=== PATIENT | male | born 1960 | race Caucasian/White ===

== ENCOUNTER → 2021-01-17 07:13 | Outpatient (CLI) | payer OTHER, SELFPAY ==
--- NOTE | 2021-01-17 | DI.US.S_ITS ---
PROCEDURE: US RENAL COMPLETE INDICATIONS: CHRONIC KIDNEY DISEASE STAGE II; FAMILY HX KIDNEY CANCER TECHNIQUE: Real-time scanning was performed of the kidneys and bladder, with image documentation. COMPARISON: None. FINDINGS: Kidneys: Kidneys are normal in size. Right kidney measures 10.3 cm long; left kidney measures 11.9 cm long. Right renal cortical thickness is 1.5 cm; left renal cortical thickness is 1.6 cm. Renal cortical echotexture is normal. No hydronephrosis or nephrolithiasis. No suspicious solid mass lesions. Bladder: Pre-void bladder volume is 186 mL. Post-void residual is 0 mL. Pre-void images demonstrate no intraluminal masses or stones. On pre-void images, bilateral ureteral jets are noted with color Doppler interrogation. Miscellaneous: No free pelvic fluid. IMPRESSION: No significant abnormality. Dictated by: Glenroy Whelan M.D. on 01/17/2021 at 9:11 Approved by: Glenroy Whelan M.D. on 01/17/2021 at 9:13
== END ==
PROVIDERS: PCP Internal Medicine; Referring Provider Internal Medicine Nephrology; Visit Provider Internal Medicine Nephrology
DX: N18.2 Chronic kidney disease, stage 2 (mild) (principal); Z80.51 Family history of malignant neoplasm of kidney
CPT/HCPCS: 76770

== ENCOUNTER → 2021-02-01 08:08 | Outpatient (CLI) | payer OTHER, SELFPAY ==
--- NOTE | 2021-02-01 08:10 | DI.US.S_ITS ---
PROCEDURE: US ABDOMEN COMPLETE INDICATIONS: PAIN TECHNIQUE: Real-time scanning was performed of the abdominal and retroperitoneal organs, with image documentation. COMPARISON: [facility], US, US RENAL COMPLETE, 01/17/2021, 7:32. FINDINGS: Liver: Liver is normal in size and homogeneous in echotexture. Gallbladder: No gallstones. No gallbladder wall thickening, pericholecystic fluid or sonographic Otto's sign. Biliary ducts: Intrahepatic bile ducts are non-dilated. Extrahepatic bile duct caliber measures 3.7 mm. Normal is 6-7 mm or less in diameter, or 10 mm or less post-cholecystectomy. Pancreas: Obscured by overlying bowel gas. Spleen: Spleen is normal in size and homogeneous in echotexture. Kidneys: Kidneys are normal in size and echotexture. Right kidney measures 10.2 cm long; left kidney measures 11.2 cm long. No hydronephrosis or nephrolithiasis. No solid masses. Aorta: Visualized aorta is normal in caliber at less than 3 cm. Iliacs: Proximal common iliac arteries are normal in caliber at less than 2.5 cm. IVC: Intrahepatic inferior vena cava is patent. Miscellaneous: No free abdominal fluid. IMPRESSION: 1. Pancreas is obscured by overlying bowel gas. Otherwise normal abdominal ultrasound exam. Dictated by: Jelly Bello M.D. on 02/01/2021 at 9:15 Approved by: Jelly Bello M.D. on 02/01/2021 at 9:16
== END ==
PROVIDERS: PCP Internal Medicine; Referring Provider Internal Medicine Nephrology; Visit Provider Internal Medicine Nephrology
DX: R10.84 Generalized abdominal pain (principal); N18.2 Chronic kidney disease, stage 2 (mild); M54.6 Pain in thoracic spine
CPT/HCPCS: 76700

== ENCOUNTER → 2021-02-01 09:09 | Outpatient (CLI) | payer OTHER, SELFPAY ==
--- NOTE | 2021-02-01 09:12 | DI.RAD.S_ITS ---
PROCEDURE: XR THORACIC SPINE 3V INDICATIONS: SPINE PAIN TECHNIQUE: 3 views of the thoracic spine were acquired. COMPARISON: None. FINDINGS: Bones: No fractures or dislocations. No suspicious bony lesions. 12 pairs of ribs are noted, and appear intact where visualized. Multilevel endplate osteophytes present. Soft tissues: No paravertebral stripe thickening. IMPRESSION: Endplate osteophytes indicating mild early multilevel mid and lower thoracic spine disc degeneration Dictated by: Demetrio Rendon [facility] Interpreted: Glenroy Whelan MD on 02/01/2021 at 9:34 Transcribed by: ANDREZ on 02/01/2021 at 9:35 Approved by: Glenroy Whelan M.D. on 02/01/2021 at 11:06
== END ==
PROVIDERS: PCP Internal Medicine; Referring Provider Internal Medicine; Visit Provider Internal Medicine
DX: M51.34 Other intervertebral disc degeneration, thoracic region (principal); R10.84 Generalized abdominal pain; N18.2 Chronic kidney disease, stage 2 (mild)
CPT/HCPCS: 72072; 76700

== ENCOUNTER → 2021-02-22 12:41 | Outpatient (CLI) | payer OTHER, SELFPAY ==
--- NOTE | 2021-02-22 12:44 | DI.CT.S_ITS ---
PROCEDURE: CT ABDOMEN WO CON INDICATIONS: Epigastric pain TECHNIQUE: After the administration of oral contrast, 5 mm thick sections acquired from the diaphragms to the iliac crests. 5 mm coronal and sagittal reformats were then performed. For radiation dose reduction, the following was used: automated exposure control, adjustment of mA and/or kV according to patient size. COMPARISON: Located [facility], , US ABDOMEN COMPLETE, 02/01/2021, 8:37. FINDINGS: Image quality: Excellent. Lung bases: Lung bases are clear. Heart size is normal. Solid organs: Liver is normal in size. Gallbladder is not distended. Small gallstone at the gallbladder neck, (4/). Pancreas is normal in contours. Fatty atrophy of the pancreas. No peripancreatic fluid collection. Spleen is normal in size. No adrenal nodules. Both kidneys are normal in size, without hydronephrosis. 2 or 3 punctate nonobstructing right kidney stones. Possible 1 punctate nonobstructing left kidney stone. Abnormal lie of the left kidney. Peritoneum and bowel: Bowel loops demonstrate normal wall thickness and caliber. Normal appendix. No free fluid or air. Nodes and vessels: No retroperitoneal or mesenteric adenopathy by size criteria. Aorta and inferior vena cava are normal in size. Bones: No suspicious bony lesions. No vertebral body compression fractures. Miscellaneous: No ventral hernias. IMPRESSION: 1. Small gallstone at the gallbladder neck. Gallbladder is not distended. No pericholecystic fluid seen. 2. Fatty atrophy of the pancreas. No peripancreatic fluid collection. 3. No hydronephrosis. A few punctate kidney stones. 4. Normal appendix. Dictated by: Bradford Kenny M.D. on 02/22/2021 at 14:14 Approved by: Bradford Kenny M.D. on 02/22/2021 at 14:19
== END ==
PROVIDERS: PCP Internal Medicine; Referring Provider Internal Medicine; Visit Provider Internal Medicine
DX: R10.13 Epigastric pain (principal); K80.20 Calculus of gallbladder without cholecystitis without obstruction; N20.0 Calculus of kidney; K86.89 Other specified diseases of pancreas
CPT/HCPCS: 74150

== ENCOUNTER → 2021-03-30 08:12 | Outpatient (CLI) | payer OTHER, SELFPAY ==
--- NOTE | 2021-03-30 08:13 | DI.US.S_ITS ---
PROCEDURE: US THYROID INDICATIONS: RIGHT ANTERIOR NECK PAIN ?MASS TECHNIQUE: Real-time scanning was performed of the thyroid gland, with image documentation. COMPARISON: None. FINDINGS: Right: Thyroid lobe measures 6.1 x 1.7 x 1.2 cm, and is homogeneous in echotexture. Left: Thyroid lobe measures 5.8 x 1.8 x 1.2 cm, and is homogenous in echotexture. Isthmus: 3.4 mm thick. No discrete thyroid nodule is seen. No neck soft tissue lymphadenopathy. IMPRESSION: Unremarkable ultrasound examination of thyroid gland. No neck soft tissue lymphadenopathy. ACR TI-RADS definitions and recommendations: TI-RADS 1 (benign): 0 points. FNA not needed. TI-RADS 2 (not suspicious): 2 points. FNA not needed. TI-RADS 3 (mildly suspicious): 3 points. * FNA if 2.5 cm or larger, follow up if 1.5 cm or larger (at 1, 3, and 5 years). TI-RADS 4 (moderately suspicious): 4-6 points. * FNA if 1.5 cm or larger, follow up if 1 cm or larger (at 1, 2, 3, and 5 years). TI-RADS 5 (highly suspicious): 7 points or more. * FNA if 1 cm or larger, follow up if 0.5 cm or larger (every year for 5 years). Dictated by: Robert Enriquez M.D. on 03/30/2021 at 10:24 Approved by: Robert Enriquez M.D. on 03/30/2021 at 11:01
== END ==
PROVIDERS: PCP Internal Medicine; Referring Provider Internal Medicine; Visit Provider Internal Medicine
DX: M54.2 Cervicalgia (principal); R22.1 Localized swelling, mass and lump, neck
CPT/HCPCS: 76536

== ENCOUNTER → 2022-03-22 12:58 | Outpatient (CLI) | payer OTHER, SELFPAY ==
--- NOTE | 2022-03-22 | DI.RAD.S_ITS ---
PROCEDURE: XR CERVICAL SPINE 2V OR 3V INDICATIONS: Cervicalgia/Pain in thoracic spine TECHNIQUE: 3 view(s) of the cervical spine were acquired. COMPARISON: None. FINDINGS: Normal cervical spine vertebral body height and alignment. No suspicious lytic or blastic osseous lesion. Mild disc height loss from C3-4 through C6-7 with mild degenerative endplate change and uncovertebral hypertrophy. IMPRESSION: Mild degenerative changes. Dictated by: Jaylon Ty M.D. on 03/22/2022 at 15:55 Approved by: Jaylon Ty M.D. on 03/22/2022 at 15:56
--- NOTE | 2022-03-22 | DI.RAD.S_ITS ---
PROCEDURE: XR THORACIC SPINE 2V INDICATIONS: Cervicalgia/Pain in thoracic spine TECHNIQUE: 3 views of the thoracic spine were acquired. COMPARISON: None. FINDINGS: Normal thoracic vertebral body height and alignment. No fracture. No acute finding. No suspicious bone lesion. No significant degenerative change. IMPRESSION: No acute or otherwise significant finding. Dictated by: Jaylon Ty M.D. on 03/22/2022 at 15:47 Approved by: Jaylon Ty M.D. on 03/22/2022 at 15:47
== END ==
PROVIDERS: PCP Internal Medicine; Referring Provider Internal Medicine; Visit Provider Internal Medicine
DX: M47.812 Spondylosis without myelopathy or radiculopathy, cervical region (principal); M54.2 Cervicalgia; M54.6 Pain in thoracic spine
CPT/HCPCS: 72040; 72070

== ENCOUNTER → 2023-10-03 08:30 | Outpatient (CLI) | payer OTHER, SELFPAY ==
[2023-10-03 09:47] LABS: HEMOLYSIS < 15 (0-50)
[2023-10-03 09:55] LABS: Hemoglobin A1C% w Est Avg Glu 5.8 % (4.0-6.0)
[2023-10-03 09:56] LABS: Alanine Aminotransferase 21 IU/L (<50); Albumin 4.3 g/dL (3.5-5.0); Albumin Globulin Ratio 1.7 (1.0-2.8); Alkaline Phosphatase 57 U/L (38-126); Aspartate Aminotransferase 21 IU/L (17-59); BUN Creatinine Ratio 21.3 (6-22); Bilirubin Total 0.9 mg/dL (0.2-1.3); Blood Urea Nitrogen 26 mg/dL (9-20); Calcium 9.2 mg/dL (8.4-10.2); Carbon Dioxide 25 mmol/L (22-32); Chloride 108 mmol/L (98-107); Cholesterol 222 mg/dL (140-199); Estimated Glomerular Filt Rate > 60 mL/min (>60); Globulin 2.5 g/dL (1.7-4.1); Glucose 96 mg/dL (80-110); HDL Cholesterol 50 mg/dL (40-60); LDL Cholesterol Calculated 141 mg/dL (<100); Potassium 4.8 mmol/L (3.4-5.1); Sodium 139 mmol/L (137-145); Total Protein 6.8 g/dL (6.3-8.2); Triglycerides 153 mg/dL (35-150)
[2023-10-03 10:44] LABS: HIV 1 & 2 Ab/Ag 4th Gen Combo NEGATIVE (NEGATIVE); Hep C Virus Ab w/Reflex Quant NEGATIVE s/c (NEGATIVE)
[2023-10-03 11:07] LABS: Prostate Specific Antigen Scrn 2.01 ng/mL (0.1-4.0)
== END ==
LOC: LAB 08:31
PROVIDERS: PCP Family Medicine; Referring Provider Family Medicine; Visit Provider Family Medicine
DX: Z00.00 Encounter for general adult medical examination without abnormal findings (principal); Z12.5 Encounter for screening for malignant neoplasm of prostate; M25.562 Pain in left knee
CPT/HCPCS: 36415; 80053; 80061; 83036; 86803; 87389; G0103

== ENCOUNTER → 2023-11-27 07:18 | Outpatient (CLI) | payer OTHER, SELFPAY ==
--- NOTE | 2023-11-27 07:19 | DI.MRI.S_ITS ---
PROCEDURE: MR KNEE LT WO CON INDICATIONS: Internal derangement of left knee TECHNIQUE: Noncontrast sagittal PD fast spin echo and T2 fast spin echo with fat saturation, sagittal 3-D FLASH with fat saturation; coronal T1 spin echo and PD fast spin echo with fat saturation, and axial PD fast spin echo with fat saturation through the knee. COMPARISON: [facility], CR, XR KNEE 4+ VIEWS LEFT, 10/21/2023, 10:18. FINDINGS: Image quality: Excellent. Menisci: In the medial meniscus, there is a undersurface tear extending from the posterior horn, to the meniscus body. No extrusion of the medial meniscus body. The lateral meniscus is unremarkable. Cruciate ligaments: The anterior and posterior cruciate ligaments appear intact. Medial structures: The medial collateral ligament appears intact. The posterior oblique ligament, semimembranosus tendon insertions, oblique popliteal ligament, and meniscocapsular junction appear intact. Visualized portions of the pes anserinus tendons appear normal. No abnormal bursal fluid. Lateral structures: The lateral collateral ligament, long and short heads of the biceps femoris tendon appear intact. The popliteus tendon appears normal; the popliteofibular ligament appears intact. The posterosuperior and anteroinferior popliteomeniscal fascicles appear intact. The arcuate and fabellofibular ligaments appear intact, on either side of the lateral inferior geniculate artery. Iliotibial band appears normal. Anterior structures: The quadriceps and patellar tendons appear intact. Patellar alignment is normal. No femoral trochlear dysplasia or ventral trochlear prominence. No edema in the infrapatellar fat pad. Marked suprapatellar fat pad edema. Bones and cartilage: The cartilage of the patellofemoral compartment, of the medial and the lateral compartments, are well maintained. No marrow edema. No acute fracture. Joint space: Small knee effusion. Trace popliteal cyst. Popliteal vasculature is unremarkable. Small ganglion cyst posterior to the distal PCL. IMPRESSION: 1. Undersurface tear of the medial meniscus. 2. Marked suprapatellar fat pad edema, raising concern for patellar maltracking. 3. Trace popliteal cyst. Small ganglion cyst posterior to the distal PCL. 4. No significant chondrosis of the left knee. Dictated by: Jennifer Keyes M.D. on 11/27/2023 at 17:57 Approved by: Jennifer Keyes M.D. on 11/27/2023 at 18:05
== END ==
PROVIDERS: PCP Family Medicine; Referring Provider Orthopaedic Surgery Adult Reconstructive Orthopaedic Surgery; Visit Provider Orthopaedic Surgery Adult Reconstructive Orthopaedic Surgery
DX: S83.242A Other tear of medial meniscus, current injury, left knee, initial encounter (principal); M67.462 Ganglion, left knee; M25.462 Effusion, left knee
CPT/HCPCS: 73721

== ENCOUNTER → 2024-10-06 10:46 | Outpatient (CLI) | payer OTHER, SELFPAY ==
--- NOTE | 2024-10-06 10:47 | DI.RAD.S_ITS ---
PROCEDURE: XR KNEE LT 3V INDICATIONS: Lt knee pain, effusion TECHNIQUE: 3 views of the knee were acquired. COMPARISON: None. FINDINGS: Bones: There are no osseous abnormalities. Joints: The tibialfemoral and patellofemoral joints are normal in width and alignment without arthritic change. . Small effusion Soft tissues: Normal IMPRESSION: Small effusion Dictated by: Ghanshyam Omalley M.D. on 10/07/2024 at 10:23 Approved by: Ghanshyam Omalley M.D. on 10/07/2024 at 10:23
== END ==
PROVIDERS: PCP Family Medicine; Referring Provider Family Medicine; Visit Provider Family Medicine
DX: S86.912A Strain of unspecified muscle(s) and tendon(s) at lower leg level, left leg, initial encounter (principal); M25.462 Effusion, left knee; X58.XXXA Exposure to other specified factors, initial encounter
CPT/HCPCS: 73562

== ENCOUNTER → 2024-10-17 09:18 | Outpatient (CLI) | payer OTHER, SELFPAY ==
--- NOTE | 2024-10-17 09:20 | DI.MRI.S_ITS ---
PROCEDURE: MR KNEE LT WO CON INDICATIONS: r/o meniscal injury TECHNIQUE: Noncontrast sagittal PD fast spin echo and T2 fast spin echo with fat saturation, sagittal 3-D FLASH with fat saturation; coronal T1 spin echo and PD fast spin echo with fat saturation, and axial PD fast spin echo with fat saturation through the knee. COMPARISON: [facility], CR, XR KNEE 4+ VIEWS LEFT, 10/21/2023, 10:18. [facility], MR, MR KNEE LT WO CON, 11/27/2023, 7:31. FINDINGS: Image quality: Excellent. Menisci: There is increased prominence of linear high T2 signal intensity traversing the inner, middle, and peripheral thirds of the anterior horn, body, and posterior horn medial meniscus, demonstrating inferior articular surface extension, indicating progressive horizontal tearing. Lateral meniscus is intact. Cruciate ligaments: The anterior and posterior cruciate ligaments appear intact. Medial structures: The medial collateral ligament appears intact, and demonstrates mild surrounding T2 signal elevation. Visualized portions of the pes anserinus tendons appear normal. Partial-thickness tearing of the semimembranosus tendon at the tibial insertion site. No abnormal bursal fluid. Lateral structures: The lateral collateral ligament, long and short heads of the biceps femoris tendon appear intact. The popliteus tendon appears normal. Iliotibial band appears normal. Anterior structures: The quadriceps and patellar tendons appear intact. Patellar alignment is normal. No femoral trochlear dysplasia or ventral trochlear prominence. No edema in the infrapatellar fat pad. Bones and cartilage: No bone marrow contusions or fractures. Mild articular cartilage loss diffusely overlies the weight-bearing aspects of the medial femoral condyle and medial tibial plateau. Articular cartilage fibrillation overlies the patellar apex and lateral patellar facet. Joint space: There is a moderate knee joint effusion and a small Arcos's cyst. Normal appearing synovial plicae are incidentally noted. IMPRESSION: 1. Progressive tearing of medial meniscus. 2. Medial collateral ligament strain. 3. Tricompartmental osteoarthritis with associated articular cartilage loss. 4. Knee joint effusion and Arcos's cyst. 5. Partial-thickness tearing of the semimembranosus tendon. Dictated by: Tisha Hernandez M.D. on 10/18/2024 at 12:02 Approved by: Tisha Hernandez M.D. on 10/18/2024 at 12:06
== END ==
PROVIDERS: PCP Family Medicine; Referring Provider Physician Assistant Surgical; Visit Provider Physician Assistant Surgical
DX: S83.242A Other tear of medial meniscus, current injury, left knee, initial encounter (principal); S83.412A Sprain of medial collateral ligament of left knee, initial encounter; M23.92 Unspecified internal derangement of left knee; M17.12 Unilateral primary osteoarthritis, left knee; M71.22 Synovial cyst of popliteal space [Baker], left knee
CPT/HCPCS: 73721

== ENCOUNTER 2024-10-21 22:47 | Emergency (ER) | payer OTHER, SELFPAY ==
[2024-10-21 22:50] VITALS: BP 159/92; PULSE 87; RESP 16; TEMP 37.4; O2SAT 95; BMI 26.5
--- NOTE | 2024-10-22 01:26 | ED_ITS ---
HPI - Back Pain/Injury General Chief Complaint: Back Pain/Injury Stated Complaint: Back Pain x4days Time Seen by Provider: 10/21/24 22:51 Source: patient History of Present Illness HPI Narrative: 64-year-old gentleman presents with right upper back pain and shoulder pain started 4 days ago but does not recall any inciting event that caused this. However of note he rales recently injured his left knee and did require crutches but he is no longer using them at this time. Denies any nausea vomiting fever chills cough but states he notices the right upper back pain with movement and breathing making it worse. He did take [place] his last norco prior to arrival and he is unsure if it helped made any difference or not. Other than what is stated 14 point review of system is negative. Related Data Previous Rx's ?Medication ?Instructions ?Recorded hydrocodone 5 mg-acetaminophen 325 1 tab PO Q8H PRN pa in #14 tabs 10/06/ mg tablet meloxicam 15 mg tablet 15 mg PO DAILY #30 tabs 09/22 06/15 Allergies Allergy/AdvReac Type Severity Reaction Status Date / Time No Known Drug Allergies Allergy Verified 10/21/24 22:50 Review of Systems Review of Systems ROS Unobtainable: All systems reviewed & are unremarkable except as noted in HPI and below Patient History Medical History (Updated 10/22/24 @ 02:26 by Ghanshyam Hyman, ) GERD (gastroesophageal reflux disease) (~2019) Surgical History (Updated 10/01/23 @ 20:07 by Karlee Camarena) S/P right knee arthroscopy (~1991) Family History (Updated 10/01/23 @ 20:10 by Karlee Camarena) Father Cancer Brother Cancer Brother History of heart disease Grandfather Stroke Grandmother Cancer Grandfather Cancer Grandmother History of heart disease Social History Smoking Status: Never smoker Smoking Status: Never smoker Exam Narrative Exam Narrative: GENERAL: [64] year old patient appears stated age. Well-developed patient, in mild distress. HEAD: Atraumatic. Normocephalic. EYES: Pupils equal round and reactive. Extraocular motions intact. No scleral icterus. No injection or drainage. ENT: Nose without bleeding, purulent drainage. Throat without erythema, tonsillar hypertrophy or exudate. Airway patent. NECK: Trachea midline. Non tender CARDIOVASCULAR: Regular rate and rhythm without murmurs, gallops, or rubs. RESPIRATORY: Clear to auscultation. Breath sounds equal bilaterally. No wheezes, rales, or rhonchi. GASTROINTESTINAL: Abdomen soft, non-tender, nondistended. EXTREMITIES: No edema or joint tenderness. BACK: Nontender without deformity or crepitance. No flank tenderness. NEURO: AOx3. SKIN: No rash or erythema of visible areas Initial Vital Signs Initial Vital Signs: Vital Signs Temperature 99.4 F 10/21/24 22:50 Pulse Rate 87 10/21/24 22:50 Respiratory Rate 16 10/21/24 22:50 Blood Pressure 159/92 H 10/21/24 22:50 Pulse Oximetry 95 10/21/24 22:50 Oxygen Delivery Method Room Air 10/21/24 22:50 Course Vital Signs Vital signs: Vital Signs - 8 hr 10/21/24 22:50 Temperature 99.4 F Pulse Rate 87 Respiratory Rate 16 Blood Pressure 159/92 H Pulse Oximetry 95 Oxygen Delivery Method Room Air MDM - Back Pain/Injury Imaging Data Chest x-ray: Radiologist's Impression: [address] [address] XRay Report Signed Patient: Bjorn Lal MR#: [id number] : 1960 Acct:[id number] Age/Sex: 64 / M Date of Service: 10/22/24 Loc: ED Accession Number: [id number] Procedure: XR chest 2V Ordering Provider: Ghanshyam Hyman D.O. PROCEDURE: XR CHEST 2V INDICATIONS: shoulder pain TECHNIQUE: 2 views of the chest were acquired. COMPARISON: None. FINDINGS: Surgical changes and devices: None. Lungs and pleura: Minimal blunting the right costophrenic. Mediastinum: Mediastinal contours are normal. Heart size is normal. Bones and chest wall: No suspicious bony abnormalities. Soft tissues appear unremarkable. IMPRESSION: Minimal right effusion. Extremity x-ray #1: Radiologist's Impression: [address] [address] XRay Report Signed Patient: Bjorn Lal MR#: [id number] : 1960 Acct:[id number] Age/Sex: 64 / M Date of Service: 10/22/24 Loc: ED Accession Number: [id number] Procedure: XR shoulder RT 2+ views Ordering Provider: Ghanshyam Hyman D.O. PROCEDURE: XR SHOULDER RT MIN 2V INDICATIONS: shoulder pain TECHNIQUE: 3 views of the shoulder were acquired. COMPARISON: None. FINDINGS: Bones: No fractures or dislocations. No suspicious bony lesions. Visualized ribs appear intact. Soft tissues: No suspicious soft tissue calcifications. Minimal right effusion. IMPRESSION: No visualized acute fracture or dislocation. However, if clinical concern and/or pain persist, short interval imaging followup in 7-10 days is recommended, as occult injury cannot be definitively excluded. MDM Narrative Medical decision making narrative: Vital signs, nurse triage note, medication list, previous ER visits, and all imaging studies reviewed. Chest x-ray showed minimal right-sided effusion. Right shoulder x-ray did not reveal any fracture or dislocation. Differential diagnosis includes fracture, dislocation, contusion, arthritis, pneumothorax, pancreatitis, kidney stone, cholecystitis. Patient given hydrocodone and ibuprofen here. DC home to follow up with PCP for continuity of care Discharge Plan Departure Patient Disposition: Home Clinical Impression: Acute upper back pain Acute shoulder pain Qualifiers: Laterality: right Qualified Code(s): M25.511 - Pain in right shoulder Instructions: DI for Thoracic Back Pain Activity Restrictions/Additional Instructions: Return with new or worsening symptoms. Alternate Tylenol 500 mg every 6 hours along with ibuprofen 800 mg every 8 hours as needed for pain control. Keep hydrated. Follow up PCP tomorrow or Friday for continuity of care. Prescriptions: No Action hydrocodone-acetaminophen 5-325 mg tablet 1 tab PO Q8H PRN (Reason: pain) Qty: 14 0RF meloxicam 15 mg tablet 15 mg PO DAILY Qty: 30 0RF Referrals: Sony Paiz DO [Primary Care Provider, Family Practice] Stand Alone Forms: Patient Portal/API
--- NOTE | 2024-10-22 01:44 | DI.RAD.S_ITS ---
PROCEDURE: XR SHOULDER RT MIN 2V INDICATIONS: shoulder pain TECHNIQUE: 3 views of the shoulder were acquired. COMPARISON: None. FINDINGS: Bones: No fractures or dislocations. No suspicious bony lesions. Visualized ribs appear intact. Soft tissues: No suspicious soft tissue calcifications. Minimal right effusion. IMPRESSION: No visualized acute fracture or dislocation. However, if clinical concern and/or pain persist, short interval imaging followup in 7-10 days is recommended, as occult injury cannot be definitively excluded. Dictated by: Richelle Bland M.D. on 10/22/2024 at 2:00 Approved by: Richelle Bland M.D. on 10/22/2024 at 2:01
--- NOTE | 2024-10-22 01:44 | DI.RAD.S_ITS ---
PROCEDURE: XR CHEST 2V INDICATIONS: shoulder pain TECHNIQUE: 2 views of the chest were acquired. COMPARISON: None. FINDINGS: Surgical changes and devices: None. Lungs and pleura: Minimal blunting the right costophrenic. Mediastinum: Mediastinal contours are normal. Heart size is normal. Bones and chest wall: No suspicious bony abnormalities. Soft tissues appear unremarkable. IMPRESSION: Minimal right effusion. Dictated by: Richelle Bland M.D. on 10/22/2024 at 2:00 Approved by: Richelle Bland M.D. on 10/22/2024 at 2:00
[2024-10-22] MEDS: IBUPROFEN 400 MG TABLET 800 MG PO (01:56)
[2024-10-22] MEDS: HYDROCODONE/ACET 5/325 TABLET 1 TAB PO (02:03)
[2024-10-22 02:34] VITALS: BP 135/88; PULSE 86; RESP 16; O2SAT 96
== END 2024-10-22 02:35 | disposition home or self-care (01) ==
PROVIDERS: Emergency Provider Family Medicine; PCP Family Medicine
DX: M54.6 Pain in thoracic spine (principal); M25.511 Pain in right shoulder
CPT/HCPCS: 71046; 73030; 99283

== ENCOUNTER → 2024-10-26 10:46 | Outpatient (CLI) | payer OTHER, SELFPAY ==
[2024-10-26 11:01] LABS: Add Manual Diff / Slide Review NO; Hematocrit 44.3 % (41-53); Hemoglobin 15.3 g/dL (13.5-17.5); Lymphocytes Absolute Auto 1600 /uL (1100-4500); Mean Corpuscular HGB Conc 34.6 % (30-36); Mean Corpuscular Hemoglobin 29.7 PG (26-34); Mean Corpuscular Volume 85.8 fL (80-100); Platelet Count 339 X10^3/uL (150-400)
[2024-10-26 11:10] LABS: Hemoglobin A1C% w Est Avg Glu 5.9 % (4.0-6.0)
[2024-10-26 11:24] LABS: Alanine Aminotransferase 27 IU/L (<50); Albumin 4.4 g/dL (3.5-5.0); Albumin Globulin Ratio 1.6 (1.0-2.8); Alkaline Phosphatase 64 U/L (38-126); Blood Urea Nitrogen 22 mg/dL (9-20); Calcium 9.7 mg/dL (8.4-10.2); Carbon Dioxide 25 mmol/L (22-32); Chloride 104 mmol/L (98-107); Cholesterol 185 mg/dL (140-199); Estimated Glomerular Filt Rate > 60 mL/min (>60); Globulin 2.7 g/dL (1.7-4.1); Glucose 111 mg/dL (70-99); HDL Cholesterol 34 mg/dL (40-60); HEMOLYSIS < 15 (0-50); Potassium 4.8 mmol/L (3.4-5.1); Sodium 139 mmol/L (137-145); Total Protein 7.1 g/dL (6.3-8.2); Triglycerides 218 mg/dL (35-150)
== END ==
PROVIDERS: PCP Family Medicine; Referring Provider Family Medicine; Visit Provider Family Medicine
DX: Z00.00 Encounter for general adult medical examination without abnormal findings (principal); E78.5 Hyperlipidemia, unspecified; R53.82 Chronic fatigue, unspecified; R73.01 Impaired fasting glucose; Z12.5 Encounter for screening for malignant neoplasm of prostate
CPT/HCPCS: 36415; 80053; 80061; 83036; 85025; G0103